=== PATIENT | male | born 1965 | race Caucasian/White ===

== ENCOUNTER 2022-08-14 12:28 | Inpatient (IN) | payer OTHER ==
[2022-08-14 13:48] VITALS: BMI 47.3
[2022-08-14] MEDS ORDERED: LOPERAMIDE HCL 2 MG CAPSULE PO PRN (14:17)
[2022-08-14] MEDS ORDERED: POLYETHYLENE GLYCOL (HEALTHYLAX) 3350 17 GM PACKET PO PRN (14:17)
[2022-08-14] MEDS ORDERED: NALOXONE HCL (KLOXXADO) 8 MG SPRAY NS PRN (14:17)
[2022-08-14] MEDS ORDERED: IBUPROFEN 600 MG TABLET (FP) PO PRN (14:17)
[2022-08-14] MEDS ORDERED: ONDANSETRON *ODT* 4 MG TABLET SL PRN (14:17)
[2022-08-14] MEDS ORDERED: MAGNESIUM HYDROX 2400MG/30ML ORAL SUSPENSION 30 ML CUP PO PRN (14:17)
[2022-08-14] MEDS ORDERED: MAG HYDROX/AL HYDROX/SIMETH 30 ML UNIT-DOSE CUP PO PRN (14:17)
[2022-08-14] MEDS ORDERED: ACETAMINOPHEN 325 MG TABLET (FP) PO PRN ×2 (14:17)
[2022-08-14] MEDS ORDERED: BENZOCAINE/MENTHOL (CHLORASEPTIC ) LOZENGE MM PRN (14:17)
[2022-08-14] MEDS ORDERED: DICYCLOMINE HCL 10 MG CAPSULE PO PRN (14:17)
[2022-08-14] MEDS ORDERED: NICOTINE 10 MG CARTRIDGE (INHALER) IH PRN (14:17)
[2022-08-14] MEDS ORDERED: BISMUTH SUBSALICYLATE 524 MG/30 ML PO PRN (14:17)
[2022-08-14] MEDS ORDERED: IBUPROFEN 400 MG TABLET (FP) PO PRN (14:17)
[2022-08-14] MEDS: MELATONIN 5 MG TABLETS PO SCH (22:06)
[2022-08-14] MEDS: hydrOXYzine PAMOATE 25 MG CAPSULE (FP) PO PRN (22:06)
[2022-08-14] MEDS: THIAMINE HCL 100 MG TABLET (FP) PO SCH (22:06)
[2022-08-14] MEDS: METHOCARBAMOL 500 MG TABLET PO PRN (22:06)
[2022-08-14] MEDS: ALBUTEROL SO4 HFA INHALER IH PRN (22:06)
[2022-08-15] MEDS ORDERED: diazePAM 5 MG TABLET PO PRN (09:14)
[2022-08-15] MEDS ORDERED: methaDONE HCL 10 MG TABLET PO SCH (09:15)
[2022-08-15] MEDS: diazePAM 5 MG TABLET PO SCH ×3 (10:16→22:10)
[2022-08-15] MEDS: PRENATAL VITAMINS W/ FOLIC ACID TABLET (FP) PO SCH (10:17)
[2022-08-15 10:51] LABS: HEMATOCRIT 35.9 % (35.4-49); HEMOGLOBIN 11.8 GM/dL (11.7-16.9); MCH 29.6 pg (25.7-33.7); MCHC 32.8 g/dl (32.0-35.9); MEAN CELL VOLUME 90.1 fl (80-96); MEAN PLT VOLUME 7.8 fl (7.5-11.1); PLATELET COUNT 250 10^3/uL (134-434); RBC 3.99 M/mm3 (4.00-5.60); RDW 14.2 % (11.9-15.9); WHITE BLOOD COUNT 10.9 K/mm3 (4.0-10.0)
[2022-08-15 11:06] LABS: CALCIUM 8.3 mg/dL (8.5-10.1)
[2022-08-15 11:07] LABS: ALBUMIN 2.9 g/dl (3.4-5.0); BLOOD UREA NITROGEN 17.4 mg/dL (7-18)
[2022-08-15 11:10] LABS: CREATININE 0.8 mg/dL (0.55-1.3); TOT PROT 6.6 g/dl (6.4-8.2)
[2022-08-15 11:13] LABS: BILIRUBIN,TOTAL 1.2 mg/dL (0.2-1)
[2022-08-15] MEDS: ALBUTEROL SO4 HFA INHALER IH PRN ×2 (12:53→23:24)
[2022-08-15 15:54] LABS: HIV INTERPRETATION NEGATIVE (NEGATIVE)
[2022-08-15] MEDS: MELATONIN 5 MG TABLETS PO SCH (22:10)
[2022-08-15] MEDS: THIAMINE HCL 100 MG TABLET (FP) PO SCH (22:10)
[2022-08-16] MEDS: diazePAM 5 MG TABLET PO SCH ×4 (05:11→22:15)
[2022-08-16] MEDS: PRENATAL VITAMINS W/ FOLIC ACID TABLET (FP) PO SCH (10:14)
[2022-08-16] MEDS: THIAMINE HCL 100 MG TABLET (FP) PO SCH (22:14)
[2022-08-16] MEDS: hydrOXYzine PAMOATE 25 MG CAPSULE (FP) PO PRN (22:14)
[2022-08-16] MEDS: MELATONIN 5 MG TABLETS PO SCH (22:14)
[2022-08-16] MEDS: METHOCARBAMOL 500 MG TABLET PO PRN (22:14)
[2022-08-17] MEDS: diazePAM 5 MG TABLET PO SCH ×3 (05:38→22:18)
[2022-08-17 09:34] LABS: BASO % 0.4 % (0-2.0); EOS % 7.1 % (0-4.5); HEMATOCRIT 37.1 % (35.4-49); HEMOGLOBIN 12.2 GM/dL (11.7-16.9); LYMPH % 34.5 % (8-40); MCH 29.4 pg (25.7-33.7); MCHC 32.7 g/dl (32.0-35.9); MEAN PLT VOLUME 7.6 fl (7.5-11.1); MONO % 7.8 % (3.8-10.2); NEUT % 50.2 % (42.8-82.8); PLATELET COUNT 254 10^3/uL (134-434); RBC 4.13 M/mm3 (4.00-5.60)
[2022-08-17] MEDS: PRENATAL VITAMINS W/ FOLIC ACID TABLET (FP) PO SCH (10:09)
[2022-08-17] MEDS: ALBUTEROL SO4 HFA INHALER IH PRN (11:21)
[2022-08-17] MEDS: MELATONIN 5 MG TABLETS PO SCH (22:18)
[2022-08-17] MEDS: THIAMINE HCL 100 MG TABLET (FP) PO SCH (22:18)
[2022-08-18] MEDS: diazePAM 5 MG TABLET PO SCH ×2 (05:27→17:17)
[2022-08-18] MEDS: PRENATAL VITAMINS W/ FOLIC ACID TABLET (FP) PO SCH (10:13)
[2022-08-18] MEDS: THIAMINE HCL 100 MG TABLET (FP) PO SCH (22:24)
[2022-08-18] MEDS: MELATONIN 5 MG TABLETS PO SCH (22:24)
[2022-08-18] MEDS: ALBUTEROL SO4 HFA INHALER IH PRN (23:03)
[2022-08-19] MEDS ORDERED: diazePAM 5 MG TABLET PO ONE (06:00)
[2022-08-19 06:02] VITALS: BP 119/73; PULSE 63; RESP 18; TEMP 97.1
== END 2022-08-19 08:47 | disposition home or self-care (01) | DRG 897 ==
LOC: YASAS 12:28 → Y3N 13:57
PROVIDERS: ADMIT Allergy & Immunology; ATTEND Surgery
PROC: HZ2ZZZZ Detoxification Services for Substance Abuse Treatment (ICD-10-PCS; principal; 2022-08-14)
DX: F13.230 Sedative, hypnotic or anxiolytic dependence with withdrawal, uncomplicated (principal); F11.20 Opioid dependence, uncomplicated; F19.282 Other psychoactive substance dependence with psychoactive substance-induced sleep disorder; Z68.42 Body mass index [BMI] 45.0-49.9, adult; F12.20 Cannabis dependence, uncomplicated; F17.210 Nicotine dependence, cigarettes, uncomplicated; F32.A Depression, unspecified; G47.00 Insomnia, unspecified; J45.40 Moderate persistent asthma, uncomplicated; K21.9 Gastro-esophageal reflux disease without esophagitis; M54.50 Low back pain, unspecified; G89.29 Other chronic pain; E66.01 Morbid (severe) obesity due to excess calories; Z86.19 Personal history of other infectious and parasitic diseases
CPT/HCPCS: 36415; 80053; 82247; 82310; 82947; 83036; 85025; 85027; 86780; 87389; C9803-CS; U0003; U0005